=== PATIENT | female | born 1945 | race Caucasian/White ===

== ENCOUNTER 2018-04-26 11:47 | Inpatient (IN) | payer MEDICARE, BC ==
[~2018-04-26] VITALS: Ht 165.1 cm; Wt 88.8 kg
[~2018-04-26 11:47] MED LIST: PRAV40TA2 PO; VALA500T PO
[2018-04-26 13:31] VITALS: BP 154/94
[2018-04-26] MEDS: LACTATED RINGERS 1,000 ML IV SCH ×2 (13:51→13:52)
[2018-04-26] MEDS ORDERED: ONDANSETRON ODT 8 MG PO ONE (14:00)
[2018-04-26] MEDS ORDERED: SCOPOLAMINE PATCH, 1.5MG PATCH.TD72 TD ONE (14:00)
[2018-04-26] MEDS ORDERED: ACETAMINOPHEN 500 MG TABLET PO ONE (14:00)
[2018-04-26] MEDS ORDERED: GABAPENTIN 300 MG CAPSULE PO ONE (14:00)
[2018-04-26] MEDS ORDERED: FENTANYL PF 100 MCG/2ML ONE ×3 (15:08→17:21)
[2018-04-26] MEDS ORDERED: BUPIVACAINE/PF-EPI 0.5% 1:200K ONE (15:49)
[2018-04-26] MEDS ORDERED: THROMBIN 5,000 UNIT VIAL TP ONE (15:49)
[2018-04-26] MEDS ORDERED: BACITRACIN 50,000 UNIT ONE (15:49)
[2018-04-26] MEDS ORDERED: ROCURONIUM 10 MG/ML,10ML ONE (15:58)
[2018-04-26] MEDS ORDERED: PROPOFOL 10 MG/ML, 20ML ONE ×2 (15:58→16:49)
[2018-04-26] MEDS ORDERED: SUCCINYLCHOLINE 20 MG/ML, 10ML ONE (15:58)
[2018-04-26] MEDS ORDERED: LIDOCAINE-MPF 2% ,5ML ONE (15:58)
[2018-04-26] MEDS ORDERED: CEFAZOLIN 1,000 MG ONE (16:49)
[2018-04-26] MEDS ORDERED: DEXAMETHASONE 4 MG/ML, 1ML ONE (16:49)
[2018-04-26] MEDS ORDERED: OXYcodone 5 MG/5 ML ORAL.SOL UDC PO PRN (17:00)
[2018-04-26] MEDS ORDERED: EPHEDRINE 50 MG/ML, 1ML IM PRN (17:00)
[2018-04-26] MEDS ORDERED: hydrALAzine 20 MG/ML, 1ML IV PRN (17:00)
[2018-04-26] MEDS ORDERED: LABETALOL 5MG/ML, 20ML IV PRN (17:00)
[2018-04-26] MEDS ORDERED: ALBUTEROL/IPRATROPIUM 2.5MG/0.5MG, 3 ML NPPB PRN (17:00)
[2018-04-26] MEDS ORDERED: MIDAZOLAM 1 MG/ML, 2ML IV PRN (17:00)
[2018-04-26] MEDS ORDERED: HYDROmorphone 1 MG/ML, 1ML IV PRN (17:00)
[2018-04-26] MEDS ORDERED: PROMETHAZINE 25 MG/ML, 1ML IV PRN (17:00)
[2018-04-26] MEDS ORDERED: ONDANSETRON 2MG/ML, 2ML IV PRN (17:00)
[2018-04-26] MEDS ORDERED: OXYcodone 5 MG/5 ML ORAL.SOL UDC ONE (17:21)
[2018-04-26] MEDS: FENTANYL PF 100 MCG/2ML IV PRN ×2 (17:25→17:37)
[2018-04-26] MEDS ORDERED: HYDROcodone/APAP 5/325 TABLET PO PRN (17:30)
[2018-04-26] MEDS ORDERED: DIPHENHYDRAMINE 50 MG CAPSULE PO PRN (17:30)
[2018-04-26] MEDS ORDERED: OXYcodone/APAP 5/325MG TABLET PO PRN (17:30)
[2018-04-26] MEDS ORDERED: LABETALOL 5MG/ML, 20ML IVPush PRN (17:30)
[2018-04-26] MEDS ORDERED: DIPHENHYDRAMINE 50 MG/ML, 1ML IVPush PRN (17:30)
[2018-04-26] MEDS ORDERED: PROMETHAZINE 25 MG/ML, 1ML IM PRN (17:30)
[2018-04-26] MEDS ORDERED: ONDANSETRON 2MG/ML, 2ML IVPush PRN (17:30)
[2018-04-26] MEDS ORDERED: PHARMACY MAY ADJ FOR RENAL FX MC PRN (17:30)
[2018-04-26] MEDS ORDERED: MAGNESIUM HYDROXIDE 8%, 30ML UDC PO PRN (17:30)
[2018-04-26] MEDS ORDERED: CYCLOBENZAPRINE 10 MG TABLET PO PRN (17:30)
[2018-04-26] MEDS ORDERED: BISACODYL 10 MG SUPP PR PRN (17:30)
[2018-04-26] MEDS ORDERED: SENNA/DOCUSATE TABLET PO PRN (17:30)
[2018-04-26] MEDS ORDERED: PRAVASTATIN 40 MG TABLET PO SCH (21:00)
[2018-04-26] MEDS: CEFAZOLIN PMX 1GM/50ML 50 ML IVPB SCH (23:44)
[2018-04-26] MEDS: DEXAMETHASONE 4 MG/ML, 1ML IVPush SCH (23:45)
[2018-04-27 01:26] VITALS: BP 114/73
[2018-04-27 04:15] VITALS: BP 115/47
[2018-04-27] MEDS: DEXAMETHASONE 4 MG/ML, 1ML IVPush SCH (06:43)
[2018-04-27 08:25] VITALS: BP 104/67
[2018-04-27] MEDS ORDERED: VALACYCLOVIR 500MG TABLET PO SCH (09:00)
[2018-04-27] MEDS: CEFAZOLIN PMX 1GM/50ML 50 ML IVPB SCH (09:09)
[2018-04-27] MEDS ORDERED: ENOXAPARIN 40 MG/0.4 ML SQ SCH (12:00)
== END 2018-04-27 11:01 | disposition home or self-care (01) | DRG 473 ==
LOC: ORIP 13:02 → 4NOR 17:40
PROVIDERS: ADMIT Neurological Surgery; ATTEND Neurological Surgery
PROC: 0RB30ZZ Excision of Cervical Vertebral Disc, Open Approach (ICD-10-PCS; 2018-04-26)
PROC: 4A11X4G Monitoring of Peripheral Nervous Electrical Activity, Intraoperative, External Approach (ICD-10-PCS; 2018-04-26)
PROC: 0RG10A0 Fusion of Cervical Vertebral Joint with Interbody Fusion Device, Anterior Approach, Anterior Column, Open Approach (ICD-10-PCS; principal; 2018-04-26 15:00)
DX: M50.123 Cervical disc disorder at C6-C7 level with radiculopathy (principal); M48.02 Spinal stenosis, cervical region; K21.9 Gastro-esophageal reflux disease without esophagitis; K29.60 Other gastritis without bleeding; G89.29 Other chronic pain; R51 Headache; M47.22 Other spondylosis with radiculopathy, cervical region; Z85.828 Personal history of other malignant neoplasm of skin
CPT/HCPCS: 72040; 76001; C1713; G0378; J0690; J1100; J2704; J3010; J3490; Q0162; C1762; J0330; J7120